=== PATIENT | female | born 1990 | race African-American/Black ===

== ENCOUNTER 2018-12-22 11:42 | Emergency (ER) | payer BC ==
[~2018-12-22] VITALS: Ht 162.6 cm; Wt 104.3 kg
[~2018-12-22 11:42] MED LIST: CLARITIN10 M1 PO; SINGULAIR10 MG PO
[2018-12-22] MEDS ORDERED: LISI5TAB10 PO (12:16)
[2018-12-22] MEDS ORDERED: PRED20TA27 PO (12:17)
[2018-12-22] MEDS ORDERED: CETIRIZINE5 MG PO (12:17)
[2018-12-22] MEDS ORDERED: FLUC200T PO (12:18)
[2018-12-22] MEDS ORDERED: LEVOFLOXACIN750 MG PO (12:18)
[2018-12-22 12:31] LABS: PLATELET COUNT 267 K/uL (152-353)
[2018-12-22 12:46] LABS: POTASSIUM 3.8 mmol/L (3.6-5.2)
[2018-12-22 15:47] VITALS: BP 106/69; TEMP 98.1
== END 2018-12-22 15:45 | disposition home or self-care (01) ==
LOC: ED 11:42
PROVIDERS: Emergency Medicine
DX: K52.9 Noninfective gastroenteritis and colitis, unspecified (principal); R10.30 Lower abdominal pain, unspecified
CPT/HCPCS: 36415; 80053; 81000; 81025; 82150; 83690; 85027; 96375; 99284; J1885; J2405; Q9963

== ENCOUNTER 2019-04-18 09:19 | Emergency (ER) | payer BC, OTHER ==
[~2019-04-18] VITALS: Ht 162.6 cm; Wt 104.3 kg
[~2019-04-18 09:19] MED LIST changes: +CETIRIZINE5 MG PO; +FLUC200T PO; +LEVOFLOXACIN750 MG PO; +LISI5TAB10 PO; +PRED20TA27 PO
[2019-04-18 09:27] VITALS: TEMP 98.6
[2019-04-18 09:55] LABS: PLATELET COUNT 266 K/uL (152-353)
[2019-04-18 10:01] LABS: POTASSIUM 4.1 mmol/L (3.6-5.2)
[2019-04-18 10:15] LABS: PARTIAL THROMBOPLASTIN TIME 26.2 SECONDS (24.5-33.6)
[2019-04-18 11:51] VITALS: BP 128/74
== END 2019-04-18 11:51 | disposition home or self-care (01) ==
LOC: ED 09:19
PROVIDERS: Hospitalist
DX: R10.9 Unspecified abdominal pain (principal); Z3A.01 Less than 8 weeks gestation of pregnancy
CPT/HCPCS: 36415; 80053; 81000; 84702; 85027; 85610; 85730; 96360; 99284

== ENCOUNTER 2020-05-12 08:53 | Outpatient (CLI) | payer BC, OTHER | END 2020-05-12 21:29 | disposition home or self-care (01) | LOC: RAD 08:53 | PROVIDERS: ATTEND Nurse Practitioner Family | DX: J45.909 Unspecified asthma, uncomplicated (principal) ==

== ENCOUNTER 2022-03-13 13:06 | Emergency (ER) | payer OTHER ==
[~2022-03-13] VITALS: Ht 162.6 cm; Wt 104.3 kg
[2022-03-13 13:42] LABS: PLATELET COUNT 266 K/uL (152-353)
[2022-03-13 13:47] LABS: POTASSIUM 3.6 mmol/L (3.6-5.2)
[2022-03-13 16:05] VITALS: BP 167/96; TEMP 98.5
== END 2022-03-13 16:10 | disposition home or self-care (01) ==
LOC: ED 13:06
PROVIDERS: Emergency Medicine
DX: K29.60 Other gastritis without bleeding (principal)
CPT/HCPCS: 36415; 80053; 81002; 85027; 96360; 96374; 96375; 99284; J1885; J2270; J2405; J3490; Q9963